=== PATIENT | male | born 2005 | race Caucasian/White ===

== ENCOUNTER 2025-07-16 12:33 | Outpatient (CLI) | payer OTHER ==
[~2025-07-16 12:33] MED LIST: Gadobenate 529 MG/ML (10ML SDV) ONE; Iopamidol 300 61% 30 ML VIAL ONE
[2025-07-16] MEDS ORDERED: Gadobenate Dimeglumine 2 ML, Sodium Chloride 0.9% 250 ML 10 ML, Iopamidol 8 ML, Lidocai... FS SCH (13:00)
== END 2025-07-16 12:34 | disposition home or self-care (01) ==
LOC: CSHRAD 12:33
PROVIDERS: ATTEND Family Medicine Sports Medicine
DX: S63.592A Other specified sprain of left wrist, initial encounter (principal)
CPT/HCPCS: 25246; 77002; A9577; J0166; J7050; Q9967